=== PATIENT | male | born 1960 | race Two or more races ===

== ENCOUNTER 2023-06-30 08:03 | Day surgery (SDC) | payer OTHER ==
[2023-06-30] MEDS ORDERED: fentaNYL CITRATE 50 MCG/ML AMPUL IV ONE (10:15)
[2023-06-30] MEDS ORDERED: DIPHENHYDRAMINE HCL 50 MG/ML VIAL 1ML IV ONE (10:15)
[2023-06-30] MEDS ORDERED: MIDAZOLAM HCL 2 MG/2 ML VIAL IV ONE (10:15)
== END 2023-06-30 11:30 | disposition home or self-care (01) ==
LOC: AMB-ENDOS 08:03
PROVIDERS: ATTEND Surgery
DX: K51.90 Ulcerative colitis, unspecified, without complications (principal); K63.5 Polyp of colon; Z20.822 Contact with and (suspected) exposure to COVID-19